=== PATIENT | female | born 1975 | race Caucasian/White ===

== ENCOUNTER 2016-04-04 18:32 | Emergency (ER) | payer BC | END 2016-04-04 22:17 | disposition home or self-care (01) | LOC: ER 18:32 | DX: S76.012A Strain of muscle, fascia and tendon of left hip, initial encounter (principal); S00.93XA Contusion of unspecified part of head, initial encounter; V23.4XXA Motorcycle driver injured in collision with car, pick-up truck or van in traffic accident, initial encounter; Z79.899 Other long term (current) drug therapy | CPT/HCPCS: 70450 ==